=== PATIENT | male | born 1995 | race Asian ===

== ENCOUNTER 2021-02-09 21:30 | Emergency (ER) | payer MEDICAID ==
[~2021-02-09] VITALS: Ht 167.6 cm; Wt 65.8 kg
[~2021-02-09 21:30] MED LIST: [UNRECOGNIZED DRUG - OTHER]
[2021-02-09] MEDS ORDERED: HYDROcodone-ACET 10/325MG TAB PO ONE (23:30)
[2021-02-09] MEDS ORDERED: ONDANSETRON ODT 4 MG TAB PO ONE (23:30)
[2021-02-10] MEDS ORDERED: LIDOCAINE 1% HCL (LOCAL ANESTH.) INJ 20ML MDV ID ONE (01:45)
[2021-02-10] MEDS ORDERED: TETANUS-DIPTH-ACEL PERTUSSIS 0.5ML SYR Tdap IM ONE (01:45)
[2021-02-10 02:39] VITALS: BP 122/67
== END 2021-02-10 02:43 | disposition home or self-care (01) ==
LOC: ER 21:32
DX: S81.812A Laceration without foreign body, left lower leg, initial encounter (principal); S81.852A Open bite, left lower leg, initial encounter; W54.0XXA Bitten by dog, initial encounter; Y93.89 Activity, other specified; Y92.89 Other specified places as the place of occurrence of the external cause; Y99.8 Other external cause status
CPT/HCPCS: 12001; 73590; 90471; 90715; 99283; J2001; Q0162